=== PATIENT | female | born 1980 ===

== ENCOUNTER → 2018-11-13 | Outpatient (CLI) | payer OTHER ==
[~2018-11-13] MED LIST: ASPI-1471 PO; BACL-1 PO; CHOL500045 PO; CYA1000 PO; DICY20TA70 PO; FLUT16SP19 NS; LEVO-3 PO; LEVO50TA86 PO; METF-450 PO; OMEG-11 PO; PREN-127 PO; methylfolate PO
== END ==
LOC: LAB 07:42
PROVIDERS: ATTEND Emergency Medicine
DX: E53.8 Deficiency of other specified B group vitamins (principal); E11.9 Type 2 diabetes mellitus without complications; E66.9 Obesity, unspecified
CPT/HCPCS: 36415; 82607; 83036; 84443